=== PATIENT | female | born 1960 | race Caucasian/White ===

== ENCOUNTER 2016-09-18 20:15 | Emergency (ER) | payer OTHER ==
[~2016-09-18] VITALS: Ht 165.1 cm; Wt 74.2 kg
[2016-09-18 20:26] VITALS: BP 144/89; PULSE 87; RESP 24; TEMP 98.5; O2SAT 100
[2016-09-18 20:45] VITALS: BP 129/66; PULSE 75; RESP 24; O2SAT 96
[2016-09-18] MEDS ORDERED: LOSA25TA PO (21:07)
[2016-09-18] MEDS ORDERED: PERC5TAB12 PO (21:07)
[2016-09-18] MEDS ORDERED: DIAZ10 PO (21:07)
[2016-09-18] MEDS ORDERED: IBUP-232 PO (21:07)
[2016-09-18] MEDS ORDERED: NAPR220T95 PO (21:07)
[2016-09-18] MEDS ORDERED: MORPHINE SULFATE 4 MG/ML INJ IV PUSH ONE ×2 (21:30→23:30)
[2016-09-18] MEDS ORDERED: ONDANSETRON HCL 4 MG/2 ML VIAL IV PUSH ONE (21:30)
[2016-09-18] MEDS ORDERED: SODIUM CHLORIDE 0.9% FLUSH 10 ML FLUSH IVF PRN (21:30)
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
[2016-09-18 21:58] VITALS: BP 135/86; PULSE 74; RESP 22; O2SAT 96
[2016-09-18 22:15] VITALS: BP 135/86; PULSE 74; RESP 22; O2SAT 96
[2016-09-18 22:17] LABS: AUTOMATED NEUTROPHIL # 5.9 TH/MM3 (1.8-7.7); BASOPHIL % 0.6 % (0.0-2.0); EOSINOPHIL % 0.1 % (0.0-4.0); HEMATOCRIT 37.3 % (35.0-46.0); HEMO FLAGS DIFF FINAL; LYMPH % 17.1 % (9.0-44.0); LYMPHOCYTE # 1.3 TH/MM3 (1.0-4.8); MEAN CELL VOLUME 95.9 FL (80.0-100.0); MEAN CORPUSCULAR HEMOGLOBIN 32.8 PG (27.0-34.0); MEAN CORPUSCULAR HGB CONC 34.2 % (32.0-36.0); MONO % 1.2 % (0.0-8.0); PLATELET COUNT 273 TH/MM3 (150-450); RED BLOOD COUNT 3.89 MIL/MM3 (4.00-5.30); RED CELL DISTRIBUTION WIDTH 12.9 % (11.6-17.2); WHITE BLOOD COUNT 7.3 TH/MM3 (4.0-11.0)
[2016-09-18 22:28] LABS: POTASSIUM 3.9 MEQ/L (3.5-5.1)
[2016-09-18 22:30] LABS: BICARBONATE 28.2 MEQ/L (21.0-32.0)
[2016-09-18 23:15] VITALS: BP 116/65; PULSE 81; RESP 18; O2SAT 95
[2016-09-18] MEDS ORDERED: IOHEXOL 350 MG/ML 10 ML VIAL (for RAD DIAG) IV ONE (23:29)
--- NOTE | 2016-09-18 23:38 | RADHPO ---
EXAM DATE/TIME: 09/18/2016 22:53 [facility] COMPARISON: No previous studies available for comparison. INDICATIONS : Left sided neck pain with difficulty swallowing. IV CONTRAST: 95 cc Omnipaque 350 (iohexol) IV RADIATION DOSE: 9.67 CTDIvol (mGy) MEDICAL HISTORY : Hypertension. SURGICAL HISTORY : Hysterectomy. Cervical plate for fracture. ENCOUNTER: Initial ACUITY: 1 day PAIN SCALE: 8/10 LOCATION: Left neck TECHNIQUE: Volumetric scanning of the neck was performed. Using automated exposure control and adjustment of th e mA and/or kV according to patient size, radiation dose was kept as low as reasonably achievable to obtain optimal diagnostic quality images. FINDINGS: NASOPHARYNX: The nasopharyngeal airway has a normal configuration. No mucosal thickening or mass is seen. OROPHARYNX: The intrinsic muscles of the tongue are symmetric. The tonsillar pillars are intact. The prevertebr al soft tissues are not thickened. LARYNX: The supraglottic, glottic, and infraglottic structures are intact. PARAPHARYNGEAL: The parapharyngeal space is intact. SALIVARY GLANDS: The parotid and submandibular glands are intact. LYMPH NODES: No enlarged or necrotic-appearing nodes. THYROID: Homogeneous enhancement without evidence of nodule. BONES: Craniocervical fusion is seen utilizing cerclage wires. An anterior fusion plate is seen at C3-C4. CONCLUSION: Normal examination. Hossein Leyva Jr., MD on September 18, 2016 at 23:33 Board Certified Radiologist. This report was verified electronically.
[2016-09-19] VITALS: BP 117/69; PULSE 70; RESP 18; TEMP 98.2; O2SAT 95
[2016-09-19] MEDS ORDERED: PERC5TAB12 PO
== END 2016-09-19 00:35 | disposition home or self-care (01) ==
LOC: PHED 20:15
DX: M54.2 Cervicalgia (principal); G89.4 Chronic pain syndrome; R11.0 Nausea; R22.1 Localized swelling, mass and lump, neck; R13.10 Dysphagia, unspecified; I10 Essential (primary) hypertension; Z76.0 Encounter for issue of repeat prescription; Z72.0 Tobacco use; Z98.890 Other specified postprocedural states; Z86.69 Personal history of other diseases of the nervous system and sense organs; Z87.19 Personal history of other diseases of the digestive system; Z85.41 Personal history of malignant neoplasm of cervix uteri
CPT/HCPCS: 70491; 80048; 85025; 96374; 96375; 96376; 99284; J2270; J2405; Q9967